=== PATIENT | male | born 1965 | race Hispanic/Latino ===

== ENCOUNTER 2017-06-29 14:24 | Emergency (ER) | payer OTHER, BC ==
[~2017-06-29] VITALS: Ht 180.3 cm; Wt 143.0 kg
[~2017-06-29 14:24] MED LIST: COUMADIN6 MG OR; COZAAR50 MG OR; FLECAINIDE100 MG OR
[2017-06-29] MEDS ORDERED: JANUVIA100 MG PO (14:42)
[2017-06-29 15:34] LABS: HEMATOCRIT 45.6 % (39.0-50.0); HEMOGLOBIN 14.6 g/dl (14.0-18.0); IMMATURE GRANULOCYTES 0.5 % (0.0-1.0); MEAN CELL VOLUME 88.2 fL CALC (80.0-100.0); MEAN CORPUSCULAR HGB 28.2 pG CALC (26.0-32.0); NEUT# 4.18 thou/uL (1.82-7.42); RED BLOOD COUNT 5.17 mill/uL (4.70-6.10)
[2017-06-29 16:04] LABS: ANION GAP 17 (6-22 (CALC)); BUN 18 mg/dL (9-20); BUN/CREATININE RATIO 18 (12-20 (CALC)); CARBON DIOXIDE 30 mmol/l (22-30); CHLORIDE 107 mmol/l (95-108); GFR > 60 ML/MIN (>=60 (CALC)); GFR FOR AFR.AMER. > 60 ML/MIN (>=60 (CALC)); POTASSIUM 4.2 mmol/l (3.5-5.1); SODIUM 150 mmol/l (137-146)
[2017-06-29 17:11] LABS: URINE BILIRUBIN - DIPSTICK NEGATIVE (NEGATIVE); URINE BLOOD DIPSTICK LARGE (NEGATIVE); URINE CLARITY CLEAR; URINE COLOR YELLOW; URINE GLUCOSE - DIPSTICK NEGATIVE (NEGATIVE); URINE KETONE NEGATIVE (NEGATIVE); URINE LEUK ESTERASE NEGATIVE (NEGATIVE); URINE NITRITE - DIPSTICK NEGATIVE (Negative); URINE PH 5.5 (4.5-8.0); URINE PROTEIN - DIPSTICK 100 mg/dL (NEG-TRACE); URINE SPECIFIC GRAVITY >=1.030
[2017-06-29 17:25] LABS: URINE RBC TNTC RBC/hpf (0-5)
[2017-06-29 17:26] LABS: URINE SQUAMOUS EPITHELIAL CELL FEW EPI/hpf (0-FEW)
[2017-06-29] MEDS ORDERED: MOTRIN400 MG PO (17:49)
[2017-06-29] MEDS ORDERED: CYCLOBENZAPR5 MG PO (17:49)
[2017-06-29 17:50] VITALS: BP 155/92
== END 2017-06-29 18:00 | disposition home or self-care (01) | DRG 552 ==
LOC: ED 14:24
PROVIDERS: Family Medicine
DX: M62.830 Muscle spasm of back (principal); I48.91 Unspecified atrial fibrillation; R31.9 Hematuria, unspecified; I10 Essential (primary) hypertension; E11.9 Type 2 diabetes mellitus without complications; E03.9 Hypothyroidism, unspecified; V59.40XA Driver of pick-up truck or van injured in collision with unspecified motor vehicles in traffic accident, initial encounter